=== PATIENT | male | born 1940 | race Caucasian/White ===

== ENCOUNTER 2020-06-24 17:43 | Inpatient (IN) | payer MEDICAID, SELFPAY ==
[~2020-06-24] VITALS: Ht 177.8 cm; Wt 88.9 kg
[2020-06-24 17:55] VITALS: BP_SYST 130
[2020-06-24 18:38] LABS: BASOPHILS % (AUTO) 0.3 % (0.0-2.0); EOSINOPHILS # (AUTO) 0.1 K/uL (0.0-0.4); HEMATOCRIT 42.1 % (36-54); HEMOGLOBIN 14.2 g/dL (14.0-18.0); LYMPHOCYTES # (AUTO) 0.9 K/uL (1.0-5.5); LYMPHOCYTES % (AUTO) 7.5 % (20.5-51.5); MEAN CORPUSCULAR HEMOGLOBIN 33 pg (27-31); MEAN CORPUSCULAR HGB CONC 34 % (32-36); MEAN CORPUSCULAR VOLUME 97 fL (79.0-98.0); MONOCYTES # (AUTO) 0.5 K/uL (0.0-1.0); NEUTROPHILS % (AUTO) 87.2 % (40.0-70.0); PLATELET COUNT (AUTO) 168 K/uL (130-430); RED BLOOD CELL COUNT(AUTO) 4.36 MIL/uL (4.2-6.2); RED CELL DISTRIBUTION WIDTH 15.7 % (9.0-15.0); WHITE BLOOD COUNT (AUTO) 12.6 K/uL (4.8-10.8)
[2020-06-24 19:23] LABS: ALANINE AMINOTRANSFERASE 43 U/L (12-78); ALBUMIN 2.9 g/dL (3.4-4.8); ALCOHOL, BLOOD 3 mg/dL (<10); ANION GAP 9 (5-15); ASPARTATE AMINOTRANSFERASE 17 U/L (10-37); BILIRUBIN,DIRECT 0.1 mg/dL (0.0-0.3); CALCIUM 8.2 mg/dL (8.4-11.0); CHLORIDE 104 mmol/L (98-107); CREATININE 1.26 mg/dL (0.55-1.30); FREE T4 (FREE THYROXINE) 1.1 ng/dl (0.8-1.5); GLUCOSE 133 mg/dL (70-99); POTASSIUM 3.7 mmol/L (3.5-5.1); SODIUM SERUM 137 mmol/L (136-145); THYROID STIMULATING HORMONE 1.38 uIu/mL (0.36-3.74); TOTAL BILIRUBIN 0.4 mg/dL (0.0-1.0); UREA NITROGEN, BLOOD 20 mg/dL (8-21)
[2020-06-24] MEDS ORDERED: HALOPERIDOL LACTATE 5 MG/ML VIAL IVP ONE (20:00)
[2020-06-24 20:04] LABS: ACETAMINOPHEN < 1 ug/mL (1-30)
[2020-06-24 20:19] LABS: BILIRUBIN,URINE NEGATIVE (NEGATIVE); BLOOD, URINE 1+ (NEGATIVE); CLARITY/URINE CLEAR (CLEAR); COLOR,URINE YELLOW (YELLOW); GLUCOSE,URINE NEGATIVE (NEGATIVE); KETONES,URINE TRACE (NEGATIVE); LEUKOCYTE ESTERASE ,URINE NEGATIVE (NEGATIVE); NITRITE, URINE NEGATIVE (NEGATIVE); PROTEIN URINE TRACE (NEGATIVE); UROBILINOGEN,URINE 0.2 (0.2-1.0)
[2020-06-24 20:32] LABS: BARBITURATE, URINE NEGATIVE (NEG <=200); BENZODIAZEPINE, URINE POSITIVE (NEG <=150); CANNABINOID, URINE NEGATIVE (NEG <=50); COCAINE, URINE NEGATIVE (NEG <=150); METHAMPHETAMINES SCREEN,URINE NEGATIVE (NEG <=500); OPIATE, URINE NEGATIVE (NEG <=100); PHENCYCLIDINE SCREEN,URINE NEGATIVE (NEG <=25); UR TRICYCLIC ANTIDEPRESSANTS NEGATIVE (NEG <=300); URINE AMPHETAMINE NEGATIVE (NEG <=500); URINE METHADONE NEGATIVE (NEG <=200); URINE OXYCODONE SCREEN NEGATIVE (NEG <=100); URINE PROPOXYPHENE SCREEN NEGATIVE (NEG <=300)
[2020-06-24 20:46] LABS: BACTERIA,URINE None Seen /HPF (None Seen)
[2020-06-24 20:47] LABS: HYALINE CASTS, URINE 0-10 /LPF (None Seen); MUCUS,URINE 3+ /LPF (None Seen)
[2020-06-24 22:29] VITALS: BP_SYST 151
[2020-06-25] VITALS: BP_SYST 151
[2020-06-25] MEDS: D5NS 1,000 ML IV SCH ×2 (00:06→16:00)
[2020-06-25] MEDS: HALOPERIDOL LACTATE 5 MG/ML VIAL IVP ONE ×2 (04:27→05:07)
[2020-06-25] MEDS ORDERED: HALOPERIDOL LACTATE 5 MG/ML VIAL IM ONE (07:45)
[2020-06-25] MEDS ORDERED: HALOPERIDOL LACTATE 5 MG/ML VIAL ONE (07:50)
[2020-06-25 08:00] VITALS: BP_SYST 149
[2020-06-25 11:29] VITALS: BP_SYST 144
[2020-06-25] MEDS ORDERED: DIPHENHYDRAMINE INJ 50 MG/ML VIAL IVP ONE (12:30)
[2020-06-25] MEDS ORDERED: LORazepam 2 MG/ML VIAL IVP ONE (12:30)
[2020-06-25] MEDS ORDERED: LORazepam 2 MG/ML VIAL ONE (12:38)
[2020-06-25] MEDS ORDERED: DIPHENHYDRAMINE INJ 50 MG/ML VIAL ONE (12:38)
[2020-06-25] MEDS: HALOPERIDOL LACTATE 5 MG/ML VIAL IM PRN ×2 (13:58→21:32)
[2020-06-25 20:00] VITALS: BP_SYST 146
[2020-06-25] MEDS: QUEtiapine FUMARATE 25 MG TABLET PO SCH (21:00)
[2020-06-26 00:05] VITALS: BP_SYST 121
[2020-06-26] MEDS: D5NS 1,000 ML IV SCH ×2 (03:36→14:04)
[2020-06-26] MEDS: HALOPERIDOL LACTATE 5 MG/ML VIAL IM PRN ×3 (05:06→17:48)
[2020-06-26 08:00] VITALS: BP_SYST 136
[2020-06-26] MEDS: QUEtiapine FUMARATE 25 MG TABLET PO SCH ×2 (08:41→21:48)
[2020-06-26] MEDS ORDERED: METOPROLOL TARTRATE 25 MG TABLET PO ONE (09:30)
[2020-06-26] MEDS ORDERED: ADENOSINE 6MG/2ML VIAL IVP ONE (10:00)
[2020-06-26] MEDS ORDERED: *LOVENOX 1MG/KG Q12H/PHARMACY XX ONE (10:15)
[2020-06-26] MEDS ORDERED: AMIODARONE HCL 450 MG in D5W 241 ML IV SCH (11:00)
[2020-06-26] MEDS ORDERED: NS 500 ML IV ONE (11:15)
[2020-06-26] MEDS: NACL 0.9% 1,000 ML IV SCH (11:42)
[2020-06-26 12:38] VITALS: BP_SYST 122
[2020-06-26] MEDS ORDERED: ENOXAPARIN SODIUM 100 MG/ML SYRINGE SUBCUT ONE (13:00)
[2020-06-26 16:00] VITALS: BP_SYST 120
[2020-06-26 20:00] VITALS: BP_SYST 148
[2020-06-26] MEDS: METOPROLOL TARTRATE 25 MG TABLET PO SCH (21:48)
[2020-06-26] MEDS: AMIODARONE HCL 200 MG TABLET PO SCH (21:49)
[2020-06-26] MEDS: ENOXAPARIN SODIUM 100 MG/ML SYRINGE SUBCUT SCH (21:51)
[2020-06-27] VITALS: BP_SYST 150
[2020-06-27] MEDS: NACL 0.9% 1,000 ML IV SCH ×4 (00:35→20:00)
[2020-06-27] MEDS: D5NS 1,000 ML IV SCH (03:44)
[2020-06-27 07:47] LABS: BASOPHILS # (AUTO) 0.1 K/uL (0.0-0.2); BASOPHILS % (AUTO) 0.7 % (0.0-2.0); EOSINOPHILS # (AUTO) 0.2 K/uL (0.0-0.4); EOSINOPHILS % (AUTO) 2.8 % (0.0-4.0); HEMATOCRIT 40.7 % (36-54); HEMOGLOBIN 13.8 g/dL (14.0-18.0); LYMPHOCYTES % (AUTO) 11.5 % (20.5-51.5); MEAN CORPUSCULAR HEMOGLOBIN 33 pg (27-31); MEAN CORPUSCULAR HGB CONC 34 % (32-36); MEAN CORPUSCULAR VOLUME 96 fL (79.0-98.0); MONOCYTES # (AUTO) 0.7 K/uL (0.0-1.0); MONOCYTES % (AUTO) 7.3 % (1.7-9.3); NEUTROPHILS # (AUTO) 6.9 K/uL (1.8-7.7); NEUTROPHILS % (AUTO) 77.7 % (40.0-70.0); PLATELET COUNT (AUTO) 164 K/uL (130-430); RED BLOOD CELL COUNT(AUTO) 4.22 MIL/uL (4.2-6.2); RED CELL DISTRIBUTION WIDTH 15.8 % (9.0-15.0); WHITE BLOOD COUNT (AUTO) 8.9 K/uL (4.8-10.8)
[2020-06-27 07:58] LABS: ALANINE AMINOTRANSFERASE 44 U/L (12-78); ALBUMIN 2.6 g/dL (3.4-4.8); ANION GAP 10 (5-15); ASPARTATE AMINOTRANSFERASE 56 U/L (10-37); CALCIUM 8.4 mg/dL (8.4-11.0); CHLORIDE 106 mmol/L (98-107); CREATININE 0.83 mg/dL (0.55-1.30); GLUCOSE 100 mg/dL (70-99); POTASSIUM 3.2 mmol/L (3.5-5.1); SODIUM SERUM 140 mmol/L (136-145); TOTAL BILIRUBIN 0.9 mg/dL (0.0-1.0); UREA NITROGEN, BLOOD 17 mg/dL (8-21)
[2020-06-27 08:00] VITALS: BP_SYST 152
[2020-06-27] MEDS: QUEtiapine FUMARATE 25 MG TABLET PO SCH ×2 (08:03→21:10)
[2020-06-27] MEDS: AMIODARONE HCL 200 MG TABLET PO SCH ×2 (08:04→21:11)
[2020-06-27] MEDS: METOPROLOL TARTRATE 25 MG TABLET PO SCH ×2 (08:04→21:10)
[2020-06-27] MEDS: HALOPERIDOL LACTATE 5 MG/ML VIAL IM PRN ×3 (08:14→18:35)
[2020-06-27] MEDS: ENOXAPARIN SODIUM 100 MG/ML SYRINGE SUBCUT SCH (08:14)
[2020-06-27 08:40] LABS: CHOLESTEROL 144 mg/dL (<200); HDL CHOLESTEROL 40 mg/dL (>45); LDL CHOLESTEROL 90 mg/dL (<100); TRIGLYCERIDES 83 mg/dL (30-150)
[2020-06-27] MEDS ORDERED: POTASSIUM CHLORIDE 20 MEQ TAB.PRT.SR PO ONE (10:00)
[2020-06-27 12:00] VITALS: BP_SYST 158
[2020-06-27 16:00] VITALS: BP_SYST 156
[2020-06-27 20:00] VITALS: BP_SYST 120
[2020-06-27] MEDS ORDERED: QUEtiapine FUMARATE 25 MG TABLET PO SCH (21:00)
[2020-06-27] MEDS: DONEPEZIL HCL 5 MG TABLET (ARICEPT) PO SCH (21:10)
[2020-06-27] MEDS: APIXABAN 2.5 MG TABLET PO SCH (21:13)
[2020-06-28 00:21] VITALS: BP_SYST 152
[2020-06-28] MEDS: NACL 0.9% 1,000 ML IV SCH ×2 (06:41→16:55)
[2020-06-28 08:01] LABS: BASOPHILS % (AUTO) 0.7 % (0.0-2.0); EOSINOPHILS # (AUTO) 0.3 K/uL (0.0-0.4); EOSINOPHILS % (AUTO) 4.4 % (0.0-4.0); HEMATOCRIT 39.7 % (36-54); HEMOGLOBIN 13.6 g/dL (14.0-18.0); LYMPHOCYTES # (AUTO) 1.1 K/uL (1.0-5.5); LYMPHOCYTES % (AUTO) 16.6 % (20.5-51.5); MEAN CORPUSCULAR HEMOGLOBIN 33 pg (27-31); MEAN CORPUSCULAR HGB CONC 34 % (32-36); MEAN CORPUSCULAR VOLUME 96 fL (79.0-98.0); MONOCYTES # (AUTO) 0.5 K/uL (0.0-1.0); MONOCYTES % (AUTO) 8.1 % (1.7-9.3); NEUTROPHILS # (AUTO) 4.5 K/uL (1.8-7.7); NEUTROPHILS % (AUTO) 70.2 % (40.0-70.0); PLATELET COUNT (AUTO) 162 K/uL (130-430); RED BLOOD CELL COUNT(AUTO) 4.12 MIL/uL (4.2-6.2); RED CELL DISTRIBUTION WIDTH 15.5 % (9.0-15.0); WHITE BLOOD COUNT (AUTO) 6.5 K/uL (4.8-10.8)
[2020-06-28 08:02] VITALS: BP_SYST 155
[2020-06-28] MEDS: METOPROLOL TARTRATE 25 MG TABLET PO SCH ×2 (08:38→20:54)
[2020-06-28] MEDS: QUEtiapine FUMARATE 25 MG TABLET PO SCH ×3 (08:38→20:50)
[2020-06-28] MEDS: AMIODARONE HCL 200 MG TABLET PO SCH ×2 (08:39→20:53)
[2020-06-28] MEDS: APIXABAN 2.5 MG TABLET PO SCH ×2 (08:41→21:03)
[2020-06-28 08:58] LABS: ANION GAP 11 (5-15); CALCIUM 8.8 mg/dL (8.4-11.0); CHLORIDE 106 mmol/L (98-107); CREATININE 0.81 mg/dL (0.55-1.30); GLUCOSE 84 mg/dL (70-99); POTASSIUM 3.4 mmol/L (3.5-5.1); SODIUM SERUM 141 mmol/L (136-145); UREA NITROGEN, BLOOD 16 mg/dL (8-21)
[2020-06-28 12:00] VITALS: BP_SYST 133
[2020-06-28 16:00] VITALS: BP_SYST 151
[2020-06-28 20:45] VITALS: BP_SYST 159
[2020-06-28] MEDS: DONEPEZIL HCL 5 MG TABLET (ARICEPT) PO SCH (20:50)
[2020-06-29 00:30] VITALS: BP_SYST 156
[2020-06-29] MEDS: NACL 0.9% 1,000 ML IV SCH ×2 (06:59→12:00)
[2020-06-29 07:32] LABS: BASOPHILS % (AUTO) 0.6 % (0.0-2.0); EOSINOPHILS # (AUTO) 0.2 K/uL (0.0-0.4); EOSINOPHILS % (AUTO) 3.4 % (0.0-4.0); HEMOGLOBIN 10.6 g/dL (14.0-18.0); LYMPHOCYTES # (AUTO) 0.7 K/uL (1.0-5.5); LYMPHOCYTES % (AUTO) 11.7 % (20.5-51.5); MEAN CORPUSCULAR HEMOGLOBIN 33 pg (27-31); MEAN CORPUSCULAR HGB CONC 34 % (32-36); MEAN CORPUSCULAR VOLUME 96 fL (79.0-98.0); MONOCYTES # (AUTO) 0.5 K/uL (0.0-1.0); MONOCYTES % (AUTO) 7.1 % (1.7-9.3); NEUTROPHILS # (AUTO) 4.9 K/uL (1.8-7.7); NEUTROPHILS % (AUTO) 77.2 % (40.0-70.0); PLATELET COUNT (AUTO) 126 K/uL (130-430); RED BLOOD CELL COUNT(AUTO) 3.22 MIL/uL (4.2-6.2); RED CELL DISTRIBUTION WIDTH 15.5 % (9.0-15.0); WHITE BLOOD COUNT (AUTO) 6.4 K/uL (4.8-10.8)
[2020-06-29 07:55] LABS: ANION GAP 11 (5-15); CALCIUM 7.4 mg/dL (8.4-11.0); CHLORIDE 108 mmol/L (98-107); CREATININE 0.72 mg/dL (0.55-1.30); GLUCOSE 73 mg/dL (70-99); SODIUM SERUM 142 mmol/L (136-145); UREA NITROGEN, BLOOD 12 mg/dL (8-21)
[2020-06-29 08:00] VITALS: BP_SYST 152
[2020-06-29] MEDS: METOPROLOL TARTRATE 25 MG TABLET PO SCH ×2 (09:51→22:04)
[2020-06-29] MEDS: APIXABAN 2.5 MG TABLET PO SCH ×2 (09:53→21:00)
[2020-06-29] MEDS: AMIODARONE HCL 200 MG TABLET PO SCH ×2 (09:54→22:03)
[2020-06-29] MEDS: QUEtiapine FUMARATE 25 MG TABLET PO SCH ×3 (09:54→22:02)
[2020-06-29] MEDS ORDERED: POTASSIUM CHLORIDE 40 MEQ in NS 250 ML IV ONE (11:00)
[2020-06-29 11:35] LABS: POTASSIUM 2.9 mmol/L (3.5-5.1)
[2020-06-29 11:53] VITALS: BP_SYST 134
[2020-06-29 15:52] VITALS: BP_SYST 132
[2020-06-29 20:00] VITALS: BP_SYST 144
[2020-06-29] MEDS: DONEPEZIL HCL 5 MG TABLET (ARICEPT) PO SCH (22:02)
[2020-06-29] MEDS: NORMAL SALINE 5 ML DISP.SYRIN IVF SCH (22:05)
[2020-06-30 00:56] VITALS: BP_SYST 120
[2020-06-30] MEDS: NORMAL SALINE 5 ML DISP.SYRIN IVF SCH ×3 (05:46→22:01)
[2020-06-30 07:37] LABS: BASOPHILS % (AUTO) 0.3 % (0.0-2.0); EOSINOPHILS % (AUTO) 0.6 % (0.0-4.0); HEMATOCRIT 38.7 % (36-54); HEMOGLOBIN 13.4 g/dL (14.0-18.0); LYMPHOCYTES # (AUTO) 0.7 K/uL (1.0-5.5); LYMPHOCYTES % (AUTO) 8.6 % (20.5-51.5); MEAN CORPUSCULAR HEMOGLOBIN 33 pg (27-31); MEAN CORPUSCULAR HGB CONC 35 % (32-36); MEAN CORPUSCULAR VOLUME 96 fL (79.0-98.0); MONOCYTES # (AUTO) 0.4 K/uL (0.0-1.0); MONOCYTES % (AUTO) 4.7 % (1.7-9.3); NEUTROPHILS # (AUTO) 7.1 K/uL (1.8-7.7); NEUTROPHILS % (AUTO) 85.8 % (40.0-70.0); PLATELET COUNT (AUTO) 191 K/uL (130-430); RED BLOOD CELL COUNT(AUTO) 4.04 MIL/uL (4.2-6.2); RED CELL DISTRIBUTION WIDTH 15.9 % (9.0-15.0); WHITE BLOOD COUNT (AUTO) 8.3 K/uL (4.8-10.8)
[2020-06-30 08:00] VITALS: BP_SYST 143
[2020-06-30 09:19] LABS: ANION GAP 11 (5-15); CALCIUM 8.6 mg/dL (8.4-11.0); CHLORIDE 103 mmol/L (98-107); CREATININE 1.03 mg/dL (0.55-1.30); GLUCOSE 139 mg/dL (70-99); POTASSIUM 3.8 mmol/L (3.5-5.1); SODIUM SERUM 138 mmol/L (136-145); UREA NITROGEN, BLOOD 20 mg/dL (8-21)
[2020-06-30] MEDS: METOPROLOL TARTRATE 25 MG TABLET PO SCH ×2 (11:07→22:00)
[2020-06-30] MEDS: QUEtiapine FUMARATE 25 MG TABLET PO SCH ×3 (11:07→21:59)
[2020-06-30] MEDS: AMIODARONE HCL 200 MG TABLET PO SCH ×2 (11:08→22:00)
[2020-06-30] MEDS: APIXABAN 2.5 MG TABLET PO SCH ×2 (11:09→21:58)
[2020-06-30 12:16] VITALS: BP_SYST 140
[2020-06-30] MEDS ORDERED: AMI200 PO (13:44)
[2020-06-30] MEDS ORDERED: METO25TA6 PO (13:44)
[2020-06-30] MEDS ORDERED: SER25 PO (13:44)
[2020-06-30] MEDS ORDERED: DONE5TAB33 PO (13:44)
[2020-06-30] MEDS ORDERED: APIX2.5T PO (13:44)
[2020-06-30 16:20] VITALS: BP_SYST 159
[2020-06-30 20:00] VITALS: BP_SYST 133
[2020-06-30] MEDS: DONEPEZIL HCL 5 MG TABLET (ARICEPT) PO SCH (21:59)
[2020-07-01] VITALS: BP_SYST 103
[2020-07-01] MEDS: NORMAL SALINE 5 ML DISP.SYRIN IVF SCH ×3 (05:12→22:59)
[2020-07-01 06:57] LABS: BASOPHILS # (AUTO) 0.1 K/uL (0.0-0.2); BASOPHILS % (AUTO) 0.9 % (0.0-2.0); EOSINOPHILS # (AUTO) 0.3 K/uL (0.0-0.4); EOSINOPHILS % (AUTO) 4.8 % (0.0-4.0); HEMATOCRIT 38.9 % (36-54); HEMOGLOBIN 13.5 g/dL (14.0-18.0); LYMPHOCYTES # (AUTO) 1.2 K/uL (1.0-5.5); MEAN CORPUSCULAR HEMOGLOBIN 33 pg (27-31); MEAN CORPUSCULAR HGB CONC 35 % (32-36); MEAN CORPUSCULAR VOLUME 96 fL (79.0-98.0); MONOCYTES # (AUTO) 0.6 K/uL (0.0-1.0); MONOCYTES % (AUTO) 9.4 % (1.7-9.3); NEUTROPHILS # (AUTO) 4.4 K/uL (1.8-7.7); NEUTROPHILS % (AUTO) 66.9 % (40.0-70.0); PLATELET COUNT (AUTO) 197 K/uL (130-430); RED BLOOD CELL COUNT(AUTO) 4.05 MIL/uL (4.2-6.2); RED CELL DISTRIBUTION WIDTH 15.8 % (9.0-15.0); WHITE BLOOD COUNT (AUTO) 6.5 K/uL (4.8-10.8)
[2020-07-01 08:12] LABS: ALANINE AMINOTRANSFERASE 38 U/L (12-78); ALBUMIN 2.5 g/dL (3.4-4.8); ANION GAP 11 (5-15); ASPARTATE AMINOTRANSFERASE 29 U/L (10-37); CALCIUM 8.5 mg/dL (8.4-11.0); CHLORIDE 104 mmol/L (98-107); CREATININE 1.01 mg/dL (0.55-1.30); GLUCOSE 82 mg/dL (70-99); POTASSIUM 3.6 mmol/L (3.5-5.1); SODIUM SERUM 140 mmol/L (136-145); TOTAL BILIRUBIN 0.7 mg/dL (0.0-1.0); UREA NITROGEN, BLOOD 18 mg/dL (8-21)
[2020-07-01] MEDS: QUEtiapine FUMARATE 25 MG TABLET PO SCH ×2 (11:14→20:37)
[2020-07-01] MEDS: AMIODARONE HCL 200 MG TABLET PO SCH (11:15)
[2020-07-01] MEDS: METOPROLOL TARTRATE 25 MG TABLET PO SCH ×2 (11:16→20:38)
[2020-07-01] MEDS: APIXABAN 2.5 MG TABLET PO SCH ×2 (11:17→20:39)
[2020-07-01 12:00] VITALS: BP_SYST 138
[2020-07-01 16:00] VITALS: BP_SYST 142
[2020-07-01 20:00] VITALS: BP_SYST 131
[2020-07-01] MEDS: DONEPEZIL HCL 5 MG TABLET (ARICEPT) PO SCH (20:39)
[2020-07-02] VITALS: BP_SYST 127
[2020-07-02] MEDS: NORMAL SALINE 5 ML DISP.SYRIN IVF SCH ×3 (06:28→23:29)
[2020-07-02 08:03] LABS: BASOPHILS # (AUTO) 0.1 K/uL (0.0-0.2); BASOPHILS % (AUTO) 0.8 % (0.0-2.0); EOSINOPHILS # (AUTO) 0.3 K/uL (0.0-0.4); EOSINOPHILS % (AUTO) 4.3 % (0.0-4.0); HEMOGLOBIN 14.7 g/dL (14.0-18.0); LYMPHOCYTES # (AUTO) 1.2 K/uL (1.0-5.5); LYMPHOCYTES % (AUTO) 15.6 % (20.5-51.5); MEAN CORPUSCULAR HEMOGLOBIN 33 pg (27-31); MEAN CORPUSCULAR HGB CONC 34 % (32-36); MEAN CORPUSCULAR VOLUME 96 fL (79.0-98.0); MONOCYTES # (AUTO) 0.6 K/uL (0.0-1.0); MONOCYTES % (AUTO) 8.5 % (1.7-9.3); NEUTROPHILS # (AUTO) 5.3 K/uL (1.8-7.7); NEUTROPHILS % (AUTO) 70.8 % (40.0-70.0); PLATELET COUNT (AUTO) 237 K/uL (130-430); RED BLOOD CELL COUNT(AUTO) 4.47 MIL/uL (4.2-6.2); RED CELL DISTRIBUTION WIDTH 15.4 % (9.0-15.0); WHITE BLOOD COUNT (AUTO) 7.4 K/uL (4.8-10.8)
[2020-07-02 08:44] LABS: ANION GAP 13 (5-15); CALCIUM 8.9 mg/dL (8.4-11.0); CHLORIDE 103 mmol/L (98-107); CREATININE 1.03 mg/dL (0.55-1.30); GLUCOSE 78 mg/dL (70-99); POTASSIUM 3.7 mmol/L (3.5-5.1); SODIUM SERUM 141 mmol/L (136-145); UREA NITROGEN, BLOOD 20 mg/dL (8-21)
[2020-07-02 08:52] VITALS: BP_SYST 157
[2020-07-02] MEDS: QUEtiapine FUMARATE 25 MG TABLET PO SCH ×3 (08:58→21:55)
[2020-07-02] MEDS: METOPROLOL TARTRATE 25 MG TABLET PO SCH ×2 (08:58→21:55)
[2020-07-02] MEDS: AMIODARONE HCL 200 MG TABLET PO SCH (08:58)
[2020-07-02] MEDS: APIXABAN 2.5 MG TABLET PO SCH ×2 (08:59→22:02)
[2020-07-02 11:56] VITALS: BP_SYST 107
[2020-07-02] MEDS: HALOPERIDOL LACTATE 5 MG/ML VIAL IM PRN (14:34)
[2020-07-02 16:53] VITALS: BP_SYST 159
[2020-07-02 20:00] VITALS: BP_SYST 136
[2020-07-02] MEDS: DONEPEZIL HCL 5 MG TABLET (ARICEPT) PO SCH (21:55)
[2020-07-03 00:50] VITALS: BP_SYST 144
[2020-07-03] MEDS: NORMAL SALINE 5 ML DISP.SYRIN IVF SCH ×3 (06:11→22:00)
[2020-07-03 08:00] VITALS: BP_SYST 149
[2020-07-03 08:11] LABS: BASOPHILS # (AUTO) 0.1 K/uL (0.0-0.2); BASOPHILS % (AUTO) 1.1 % (0.0-2.0); EOSINOPHILS # (AUTO) 0.5 K/uL (0.0-0.4); EOSINOPHILS % (AUTO) 6.8 % (0.0-4.0); HEMATOCRIT 42.3 % (36-54); HEMOGLOBIN 14.4 g/dL (14.0-18.0); LYMPHOCYTES # (AUTO) 1.3 K/uL (1.0-5.5); LYMPHOCYTES % (AUTO) 18.2 % (20.5-51.5); MEAN CORPUSCULAR HEMOGLOBIN 33 pg (27-31); MEAN CORPUSCULAR HGB CONC 34 % (32-36); MEAN CORPUSCULAR VOLUME 97 fL (79.0-98.0); MONOCYTES # (AUTO) 0.6 K/uL (0.0-1.0); MONOCYTES % (AUTO) 8.7 % (1.7-9.3); NEUTROPHILS # (AUTO) 4.6 K/uL (1.8-7.7); NEUTROPHILS % (AUTO) 65.2 % (40.0-70.0); PLATELET COUNT (AUTO) 263 K/uL (130-430); RED BLOOD CELL COUNT(AUTO) 4.36 MIL/uL (4.2-6.2); RED CELL DISTRIBUTION WIDTH 15.6 % (9.0-15.0); WHITE BLOOD COUNT (AUTO) 7.1 K/uL (4.8-10.8)
[2020-07-03 09:29] LABS: ALANINE AMINOTRANSFERASE 39 U/L (12-78); ALBUMIN 2.7 g/dL (3.4-4.8); ANION GAP 11 (5-15); ASPARTATE AMINOTRANSFERASE 30 U/L (10-37); CALCIUM 8.9 mg/dL (8.4-11.0); CHLORIDE 104 mmol/L (98-107); CREATININE 0.99 mg/dL (0.55-1.30); GLUCOSE 83 mg/dL (70-99); POTASSIUM 3.4 mmol/L (3.5-5.1); SODIUM SERUM 141 mmol/L (136-145); TOTAL BILIRUBIN 0.5 mg/dL (0.0-1.0); UREA NITROGEN, BLOOD 20 mg/dL (8-21)
[2020-07-03] MEDS: QUEtiapine FUMARATE 25 MG TABLET PO SCH ×3 (10:23→22:43)
[2020-07-03] MEDS: AMIODARONE HCL 200 MG TABLET PO SCH (10:24)
[2020-07-03] MEDS: METOPROLOL TARTRATE 25 MG TABLET PO SCH ×2 (10:25→22:42)
[2020-07-03] MEDS: APIXABAN 2.5 MG TABLET PO SCH ×2 (10:27→22:43)
[2020-07-03 12:00] VITALS: BP_SYST 108
[2020-07-03 16:00] VITALS: BP_SYST 113
[2020-07-03] MEDS ORDERED: POTASSIUM CHLORIDE 20 MEQ TAB.PRT.SR PO ONE (17:45)
[2020-07-03] MEDS ORDERED: POTASSIUM CHLORIDE 20 MEQ TAB.PRT.SR ONE (18:22)
[2020-07-03 20:00] VITALS: BP_SYST 112
[2020-07-03] MEDS: DONEPEZIL HCL 5 MG TABLET (ARICEPT) PO SCH (22:42)
[2020-07-04] VITALS: BP_SYST 127
[2020-07-04] MEDS: NORMAL SALINE 5 ML DISP.SYRIN IVF SCH ×2 (06:13→20:21)
[2020-07-04 08:19] LABS: BASOPHILS % (AUTO) 0.9 % (0.0-2.0); EOSINOPHILS # (AUTO) 0.3 K/uL (0.0-0.4); EOSINOPHILS % (AUTO) 5.4 % (0.0-4.0); HEMATOCRIT 43.2 % (36-54); HEMOGLOBIN 14.6 g/dL (14.0-18.0); LYMPHOCYTES % (AUTO) 18.7 % (20.5-51.5); MEAN CORPUSCULAR HEMOGLOBIN 33 pg (27-31); MEAN CORPUSCULAR HGB CONC 34 % (32-36); MEAN CORPUSCULAR VOLUME 97 fL (79.0-98.0); MONOCYTES # (AUTO) 0.5 K/uL (0.0-1.0); MONOCYTES % (AUTO) 9.5 % (1.7-9.3); NEUTROPHILS # (AUTO) 3.4 K/uL (1.8-7.7); NEUTROPHILS % (AUTO) 65.5 % (40.0-70.0); PLATELET COUNT (AUTO) 254 K/uL (130-430); RED BLOOD CELL COUNT(AUTO) 4.45 MIL/uL (4.2-6.2); RED CELL DISTRIBUTION WIDTH 15.8 % (9.0-15.0); WHITE BLOOD COUNT (AUTO) 5.3 K/uL (4.8-10.8)
[2020-07-04 08:21] LABS: ANION GAP 10 (5-15); CALCIUM 8.8 mg/dL (8.4-11.0); CHLORIDE 105 mmol/L (98-107); CREATININE 1.17 mg/dL (0.55-1.30); GLUCOSE 87 mg/dL (70-99); POTASSIUM 3.9 mmol/L (3.5-5.1); SODIUM SERUM 143 mmol/L (136-145); UREA NITROGEN, BLOOD 22 mg/dL (8-21)
[2020-07-04] MEDS: AMIODARONE HCL 200 MG TABLET PO SCH (09:18)
[2020-07-04] MEDS: QUEtiapine FUMARATE 25 MG TABLET PO SCH ×2 (09:19→20:21)
[2020-07-04] MEDS: APIXABAN 2.5 MG TABLET PO SCH ×2 (09:22→20:25)
[2020-07-04] MEDS: METOPROLOL TARTRATE 25 MG TABLET PO SCH ×2 (09:27→20:24)
[2020-07-04 12:17] VITALS: BP_SYST 112
[2020-07-04 16:15] VITALS: BP_SYST 124
[2020-07-04 20:00] VITALS: BP_SYST 115
[2020-07-04] MEDS: DONEPEZIL HCL 5 MG TABLET (ARICEPT) PO SCH (20:21)
== END 2020-07-04 20:55 | DRG 137 ==
LOC: SED 17:43 → STU 20:03 → SMU 06-28 17:40
PROVIDERS: ADMIT Internal Medicine Hospice and Palliative Medicine; ATTEND Preventive Medicine Preventive Medicine/Occupational Environmental Medicine
DX: U07.1 COVID-19 (principal); I48.20 Chronic atrial fibrillation, unspecified; F29 Unspecified psychosis not due to a substance or known physiological condition; E44.0 Moderate protein-calorie malnutrition; R65.10 Systemic inflammatory response syndrome (SIRS) of non-infectious origin without acute organ dysfunction; I10 Essential (primary) hypertension; D72.829 Elevated white blood cell count, unspecified; F02.80 Dementia in other diseases classified elsewhere, unspecified severity, without behavioral disturbance, psychotic disturbance, mood disturbance, and anxiety; G30.9 Alzheimer's disease, unspecified; M19.90 Unspecified osteoarthritis, unspecified site; R53.81 Other malaise; E87.6 Hypokalemia; R73.9 Hyperglycemia, unspecified; R74.01 Elevation of levels of liver transaminase levels; E88.09 Other disorders of plasma-protein metabolism, not elsewhere classified; D69.6 Thrombocytopenia, unspecified; D64.9 Anemia, unspecified; I48.92 Unspecified atrial flutter; Z79.01 Long term (current) use of anticoagulants; Z78.1 Physical restraint status; Z87.891 Personal history of nicotine dependence; Z68.28 Body mass index [BMI] 28.0-28.9, adult
CPT/HCPCS: 36415; 70450-TC; 70551; 71045; 76376; 80048; 80053; 80061; 80076; 80307; 81000-TC; 82607; 83735-TC; 83880; 84439; 84443-TC; 84484; 85025; 93005; 93306; 96374; 97110-GP; 97112-GP; 97116-GP; 97530-GP; 99285; G0378; G0480; G0481; G0482; J0153; J1200; J1630; J1650; J2060; J3480; J7030; J7042; J7050; J7060; U0003